=== PATIENT | female | born 1955 | race Caucasian/White ===

== ENCOUNTER 2017-12-10 20:46 | Emergency (ER) | payer BC ==
[2017-12-10 21:14] LABS: BASO % 0.5 % (0-6); EOS % 1.7 % (0-6); GRAN % 52.4 % (47-80); HEMATOCRIT 43.2 % (35.0-47.0); HEMOGLOBIN 14.6 gm/dl (11.6-16.0); LYMPH % 37.4 % (16-45); MEAN CELL VOLUME 88.3 fl (81-97); MEAN CORPUSCULAR HEMOGLOBIN 29.9 pg (27-33); MEAN CORPUSCULAR HGB CONC 33.8 g/dl (32-36); MEAN PLATELET VOLUME 9.4 fl (7.4-10.4); PLATELET COUNT 334 K/uL (130-400); RED BLOOD COUNT 4.89 M/uL (3.80-5.40); RED CELL DISTRIBUTION WIDTH 12.5 % (11.5-14.5); WHITE BLOOD COUNT W/O DIFF 6.7 K/uL (4.2-12.2)
[2017-12-10] MEDS ORDERED: DILTIAZEM HCL 125 MG in 0.9 % SODIUM CHLORIDE 100ML 100 ML IV SCH (21:15)
[2017-12-10] MEDS ORDERED: 0.9 % SODIUM CHLORIDE 1000ML 1,000 ML IV SCH (21:15)
--- NOTE | 2017-12-10 21:19 | Emergency Department Record ---
History of Present Illness - General Chief Complaint: Dizziness Stated Complaint: ELEVATED HEART RATE,DIZZINESS Time Seen by Provider: 12/10/17 20:54 Source: Patient Mode of Arrival: Ambulatory Limitations: No limitations - History of Present Illness Initial Comments: 62 yo female presents to ED for evaluation of palpations and dizziness that began a few hours ago while at rest at home. Patient denies a previous history of irregular heart beat, and denies recent fevers, chills, chest discomfort, or history of thyroid problems. Patient reports a history of MS and fibromyalgia, also takes Eliquis for DVT previously. MD Complaint: Dizziness Onset/Timin -: Hour(s) Timing: Unsure Description: Lightheadedness History of Same: No History of Trauma: No Improves With: Other Worsens With: Movement Associated Symptoms: Weakness - Adrianne Coma Scale Eye Response: (4) Open spontaneously Motor Response: (6) Obeys commands Verbal Response: (5) Oriented Adrianne Total: 15 - Related Data Home Medications Medication Instructions Recorded Confirmed Last Taken Apixaban [Eliquis] 5 mg PO DAILY 12/10/17 12/10/17 Unknown Budesonide/Formoterol Fumarate 1 puff INH BID 12/10/17 12/10/17 Unknown [Symbicort 160-4.5 Mcg Inhaler] Duloxetine HCl [Cymbalta] 30 mg PO DAILY 12/10/17 12/10/17 Unknown L. Rhamnosus/C/Zinc Cit/Yeast 1 tab PO DAILY 12/10/17 12/10/17 Unknown [Culturelle Immune Defense Cap] Trazodone HCl [Desyrel] 50 mg PO QHS 12/10/17 12/10/17 Unknown Allergies Allergy/AdvReac Type Severity Reaction Status Date / Time Penicillins Allergy Severe HIVES Unverified 06/08/16 18:54 Sulfa (Sulfonamide Allergy Severe HIVES Unverified 06/08/16 18:54 Antibiotics) [SULFA (SULFONAMIDE ANTIBIOTICS)] Travel Screening - Travel/Exposure Within Last 30 Days Have you traveled within the last 30 days?: No - Travel Symptoms Symptom Screening: None Review of Systems Constitutional: Denies: Chills, Fever, Malaise, Night sweats Eyes: Denies: Eye discharge, Eye pain ENT: Denies: Congestion, Ear pain, Epistaxis Cardiovascular: Reports: Palpitations. Denies: Chest pain, Dyspnea on exertion Endocrine: Denies: Fatigue, Heat or cold intolerance Gastrointestinal: Denies: Abdominal pain, Nausea, Vomiting Genitourinary: Denies: Incontinence, Retention Musculoskeletal: Denies: Arthralgia, Back pain, Gout, Joint swelling Skin: Denies: Bruising, Change in color Neurological: Denies: Abnormal gait, Confusion, Headache, Seizure Psychiatric: Denies: Anxiety Hematological/Lymphatic: Denies: Anemia, Blood Clots Past Medical History - SOCIAL HISTORY Smoking Status: Never smoker Alcohol Use: Rare Drug Use: None - RESPIRATORY Hx Respiratory Disorders: Yes Hx Asthma: Yes - CARDIOVASCULAR Hx Cardio Disorders: Yes Comment:: hyperlipedemia - NEURO Hx Neuro Disorders: Yes Comment:: MS - GI Hx GI Disorders: No - Hx Genitourinary Disorders: No - ENDOCRINE Hx Endocrine Disorders: No - MUSCULOSKELETAL Hx Musculoskeletal Disorders: Yes Hx Fibromyalgia: Yes - PSYCH Hx Psych Problems: No - HEMATOLOGY/ONCOLOGY Hx Hematology/Oncology Disorders: No Family Medical History Any Significant Family History?: No Physical Exam - General General Appearance: Alert, Oriented x3, Cooperative, Moderate distress Limitations: No limitations - Head Head exam: Atraumatic, Normocephalic, Normal inspection Head exam detail: negative: Abrasion, Contusion, Downing's sign, General tenderness, Hematoma, Laceration - Eye Eye exam: Normal appearance. negative: Conjunctival injection, Periorbital swelling, Periorbital tenderness, Scleral icterus - ENT Ear exam: negative: Auricular hematoma, Auricular trauma Nasal Exam: negative: Active bleeding, Discharge, Dried blood, Foreign body Mouth exam: negative: Drooling, Laceration, Tongue elevation - Neck Neck exam: Normal inspection. negative: Meningismus, Tenderness - Respiratory Respiratory exam: Normal lung sounds bilaterally. negative: Rales, Respiratory distress, Rhonchi, Stridor - Cardiovascular Cardiovascular Exam: Irregular rhythm, Tachycardia - GI/Abdominal GI/Abdominal exam: Soft. negative: Rebound, Rigid, Tenderness - Rectal Rectal exam: Deferred - exam: Deferred - Extremities Extremities exam: Normal inspection. negative: Calf tenderness, Pedal edema, Tenderness - Back Back exam: Denies: CVA tenderness (R), CVA tenderness (L) - Neurological Neurological exam: Alert, Normal gait, Oriented X3 - Psychiatric Psychiatric exam: Normal affect, Normal mood - Skin Skin exam: Normal color. negative: Abrasion Type of lesion: negative: abrasion Course Vital Signs 12/10/17 20:50 Pulse Rate [ 131 H [employer] ] Respiratory 18 Rate Blood Pressure 139/95 [Left Arm] Pulse Ox 98 - Reevaluation(s) Reevaluation #1: 12/10/17 21:15 EKG: Atrial Fibrillation 147 Normal axis, irregular R-R intervals T wave inversions I, AVL, mild ST depression V5-V6 Reevaluation #2: 12/10/17 21:32 BP 123/85, will increase Cardizem qttp to 7.5 mg/hr. Reevaluation #3: 12/10/17 21:45 Labs reviewed and are grossly unremarkable for an acute process. Pulse 110's at this time, and the patient is resting comfortably. Will initiate transfer for new-onset cardiology. Reevaluation #4: 12/10/17 21:51 Case was discussed with Dr. Asher, will accept admission at time. Medical Decision Making - Lab Data Result diagrams: 12/10/17 21:00 12/10/17 21:00 Critical Care Time Critical Care Time: Yes Total Critical Care Time: 35 Critical Care Time: Diagnosis and treatment of atrial fibrillation, titration of cardizem drip, initiation of transfer for A. Fib with RVR. Disposition Disposition: Transfer Clinical Impression: Atrial fibrillation with rapid ventricular response Disposition: Acute Care Hospital Transfer Transfer To: [facility] Reason For Transfer: Cardiology consultation Accepting Physician: Lakeshia Time Discussed w/Accepting Physician: 21:52 Condition: (2) Stable Forms: Patient Portal Access Time of Disposition: 21:52 Quality - Quality Measures Quality Measures: N/A - Blood Pressure Screening Does Patient Have Any of the Following: No Blood Pressure Classification: Pre-Hypertensive BP Reading Systolic Measurement: 123 Diastolic Measurement: 85 Screening for High Blood Pressure: < Pre-Hypertensive BP, F/U Documented > [ G8950] Pre-Hypertensive Follow-up Interventions: Referral to alternative/primary care provider.
[2017-12-10 21:33] LABS: ALB/GLOB RATIO 1.5 (1.1-1.8); ALBUMIN 4.6 g/dL (4.0-5.0); ALKALINE PHOSPHATASE 88 U/L (35-104); ALT/SGPT 23 U/L (<33); AST/SGOT 18 U/L (10.0-35.0); BLOOD UREA NITROGEN 15 mg/dL (8-23); CREATININE 0.5 mg/dL (0.5-0.9); EST GLOMERULAR FILTRATION RATE > 60 mL/min; GLUCOSE,RANDOM 105 mg/dL (74-109); TOTAL PROTEIN 7.6 g/dL (6.6-8.7)
[2017-12-10 21:43] LABS: THYROID STIMULATING HORMONE 3.12 uIU/mL (0.270-4.20)
== END 2017-12-10 22:53 | disposition short-term general hospital (02) ==
LOC: ER 20:46
DX: I48.0 Paroxysmal atrial fibrillation (principal); R42 Dizziness and giddiness; Z86.718 Personal history of other venous thrombosis and embolism; Z79.01 Long term (current) use of anticoagulants; G35 Multiple sclerosis
CPT/HCPCS: 80053; 84443; 84484; 85025; 93005; 93010; 96365; 96366; 99285; J7030

== ENCOUNTER 2018-08-31 14:05 | Emergency (ER) | payer BC ==
--- NOTE | 2018-08-31 14:32 | Emergency Department Record ---
History of Present Illness - General Chief Complaint: Arrythmia/Palpitations Stated Complaint: IRREGULAR HEART RATE Time Seen by Provider: 08/31/18 14:10 Source: Patient Mode of Arrival: Wheelchair - History of Present Illness Initial Comments: patient had vomiting and diarrhea yesterday and had two vomiting episodes yesterday and 6 bouts of diarrhea and the diarrhea is still going on today and she ate eggs and orange juice and toast and kept i down. She didn't take any of her meds yesterday or today and her felt her heart rate was to0 fast and they came in to be checked for atrial fib. Patient states PMH of atrial fib in november 2017 and hisory of DVT times two and is on eliquis for life and she also takes multaq,. Upon arrival to ED she was n NSR and heart rate was 95. Patient denies chest pain, dyspnea but does have tendeness in all four abdominal quadrants. Onset/Timin -: Days(s) Arrythmia History: Atrial fibrillation - Related Data Home Medications Medication Instructions Recorded Confirmed Last Taken Atorvastatin Calcium 20 mg PO DAILY 08/31/18 08/31/18 1 Day Ago ~08/30/18 Dronedarone HCl [Multaq] 400 mg PO BID 08/31/18 08/31/18 1 Day Ago ~08/30/18 Interferon Beta-1A/Albumin [Avonex 30 mcg IM WEEKLY 08/31/18 08/31/18 1 Day Ago 30 Mcg Vial Kit] ~08/30/18 Omeprazole 20 mg PO DAILY 08/31/18 08/31/18 1 Day Ago ~08/30/18 Previous Rx's Medication Instructions Recorded Dicyclomine HCl [Bentyl] 10 mg PO Q8H #20 cap 08/31/18 Allergies Allergy/AdvReac Type Severity Reaction Status Date / Time Penicillins Allergy Severe HIVES Verified 08/31/18 14:45 Sulfa (Sulfonamide Allergy Severe HIVES Verified 08/31/18 14:45 Antibiotics) [SULFA (SULFONAMIDE ANTIBIOTICS)] Travel Screening - Travel/Exposure Within Last 30 Days Have you traveled within the last 30 days?: No - Travel/Exposure Within Last Year Have you traveled outside the [place] in the last year?: No - Additonal Travel Details Have you been exposed to anyone with a communicable illness?: No - Travel Symptoms Symptom Screening: None Review of Systems Reviewed: No additional complaints except as noted below Constitutional: Reports: As per HPI. Denies: Chills, Fever, Malaise, Night sweats, Weakness, Weight change Eyes: Reports: As per HPI. Denies: Eye discharge, Eye pain, Photophobia, Vision change ENT: Reports: As per HPI. Denies: Congestion, Dental pain, Ear pain, Epistaxis , Hearing loss, Throat pain Respiratory: Reports: As per HPI. Denies: Cough, Dyspnea, Hemoptysis, Stridor, Wheezes Cardiovascular: Reports: As per HPI, Arrhythmia. Denies: Chest pain, Dyspnea on exertion, Edema, Murmurs, Orthopnea, Palpitations, Paroxysmal nocturnal dyspnea, Rheumatic Fever, Syncope Endocrine: Reports: As per HPI. Denies: Fatigue, Heat or cold intolerance, Polydipsia, Polyuria Gastrointestinal: Reports: As per HPI, Abdominal pain, Diarrhea, Nausea, Vomiting. Denies: Constipation, Hematemesis, Hematochezia, Melena Genitourinary: Reports: As per HPI. Denies: Abnormal menses, Discharge, Dyspareunia, Dysuria, Frequency, Hematuria, Incontinence, Retention, Urgency Musculoskeletal: Reports: As per HPI. Denies: Arthralgia, Back pain, Gout, Joint swelling, Myalgia, Neck pain Skin: Reports: As per HPI. Denies: Bruising, Change in color, Change in hair/ nails, Lesions, Pruritus, Rash Neurological: Reports: As per HPI. Denies: Abnormal gait, Confusion, Headache, Numbness, Paresthesias, Seizure, Tingling, Tremors, Vertigo, Weakness Psychiatric: Reports: As per HPI. Denies: Anxiety, Auditory hallucinations, Depression, Homicidal thoughts, Suicidal thoughts, Visual hallucinations Hematological/Lymphatic: Reports: As per HPI. Denies: Anemia, Blood Clots, Easy bleeding, Easy bruising, Swollen glands Past Medical History - SOCIAL HISTORY Smoking Status: Never smoker Alcohol Use: Rare, Occasional Drug Use: None - RESPIRATORY Hx Respiratory Disorders: Yes Hx Asthma: Yes Hx Sleep Apnea: Yes Hx of CPAP: Yes - CARDIOVASCULAR Hx Cardio Disorders: Yes Hx Irregular Heartbeat: Yes (A-fib) Comment:: hyperlipedemia - NEURO Hx Neuro Disorders: Yes Comment:: MS - GI Hx GI Disorders: No - Hx Genitourinary Disorders: No - ENDOCRINE Hx Endocrine Disorders: No - MUSCULOSKELETAL Hx Musculoskeletal Disorders: Yes Hx Fibromyalgia: Yes - PSYCH Hx Psych Problems: No - HEMATOLOGY/ONCOLOGY Hx Hematology/Oncology Disorders: No Family Medical History Any Significant Family History?: Yes Family Hx Comment (NOT TO BE USED IN PLACE OF ITEMS BELOW): MD with brothers Hx Cancer: Father Hx Heart Disease: Grandparents Physical Exam - General General Appearance: Alert, Oriented x3, Cooperative, No acute distress - Head Head exam: Normal inspection - Eye Eye exam: Normal appearance, PERRL Pupils: Normal accommodation - ENT ENT exam: Normal exam, Mucous membranes moist, Normal external ear exam, Normal orophraynx, TM's normal bilaterally Ear exam: Normal external inspection. negative: External canal tenderness Nasal Exam: Normal inspection. negative: Discharge, Sinus tenderness Mouth exam: Normal external inspection, Tongue normal Teeth exam: Normal inspection. negative: Dental caries Throat exam: Normal inspection. negative: Tonsillar erythema, Tonsillar exudate - Neck Neck exam: Normal inspection, Full ROM. negative: Tenderness - Respiratory Respiratory exam: Normal lung sounds bilaterally. negative: Respiratory distress - Cardiovascular Cardiovascular Exam: Regular rate, Normal rhythm, Normal heart sounds - GI/Abdominal GI/Abdominal exam: Soft, Normal bowel sounds, Tenderness (tenderness in all four quads). negative: Distended, Guarding, Rebound, Rigid - Rectal Rectal exam: Deferred - exam: Deferred - Extremities Extremities exam: Normal inspection, Full ROM, Normal capillary refill. negative: Tenderness - Back Back exam: Reports: Normal inspection, Full ROM. Denies: Muscle spasm, Rash noted, Tenderness - Neurological Neurological exam: Alert, Normal gait, Oriented X3, Reflexes normal - Psychiatric Psychiatric exam: Normal affect, Normal mood - Skin Skin exam: Dry, Intact, Normal color, Warm Course Vital Signs 08/31/18 14:09 Temperature 99.0 F Pulse Rate 96 H Respiratory 20 Rate Blood Pressure 134/79 Pulse Ox 96 - Reevaluation(s) Reevaluation #1: feeling better ,last diarrhea stool this am 08/31/18 15:18 Medical Decision Making - Lab Data Result diagrams: 08/31/18 14:35 08/31/18 14:35 Disposition Clinical Impression: Vomiting and diarrhea, Gastroenteritis Disposition: Home, Self-Care Condition: (1) Good Instructions: Gastroenteritis (ED) Additional Instructions: fluids and bland food like applesauce, bananas ,rive toast and yogurt follow up with family Dr in 2 days if not better or return to ED Prescriptions: Dicyclomine HCl [Bentyl] 10 mg PO Q8H #20 cap Forms: Patient Portal Access Time of Disposition: 15:20 Quality - Quality Measures Quality Measures: N/A - Blood Pressure Screening Does Patient Have Any of the Following: No Blood Pressure Classification: Pre-Hypertensive BP Reading Systolic Measurement: 134 Diastolic Measurement: 79 Screening for High Blood Pressure: < Pre-Hypertensive BP, F/U Documented > [ G8950] Pre-Hypertensive Follow-up Interventions: Referral to alternative/primary care provider.
[2018-08-31] MEDS ORDERED: 0.9 % SODIUM CHLORIDE 1000ML 1,000 ML IV PRN (14:34)
[2018-08-31 14:45] LABS: BASO % 0.2 % (0-6); EOS % 1.8 % (0-6); GRAN % 61.4 % (47-80); HEMATOCRIT 46.1 % (35.0-47.0); LYMPH % 25.5 % (16-45); MEAN CELL VOLUME 90.6 fl (81-97); MEAN CORPUSCULAR HEMOGLOBIN 29.5 pg (27-33); MEAN CORPUSCULAR HGB CONC 32.5 g/dl (32-36); MEAN PLATELET VOLUME 9.1 fl (7.4-10.4); MONO % 11.1 % (0-9); PLATELET COUNT 301 K/uL (130-400); RED BLOOD COUNT 5.09 M/uL (3.80-5.40)
[2018-08-31 15:01] LABS: BLOOD UREA NITROGEN 14 mg/dL (8-23); CREATININE 0.6 mg/dL (0.5-0.9); EST GLOMERULAR FILTRATION RATE > 60 mL/min
[2018-08-31 15:04] LABS: GLUCOSE,RANDOM 99 mg/dL (74-109)
[2018-08-31 15:06] LABS: TOTAL PROTEIN 7.7 g/dL (6.6-8.7)
[2018-08-31 15:07] LABS: LIPASE 25 U/L (13-60)
[2018-08-31 15:10] LABS: ALT/SGPT 31 U/L (<33)
[2018-08-31 15:11] LABS: ALBUMIN 4.7 g/dL (4.0-5.0); ALKALINE PHOSPHATASE 72 U/L (35-104); AST/SGOT 32 U/L (10.0-35.0); BILIRUBIN,DIRECT < 0.2 mg/dL (0-0.3)
== END 2018-08-31 15:35 | disposition home or self-care (01) ==
LOC: ER 14:05
DX: K52.9 Noninfective gastroenteritis and colitis, unspecified (principal); R11.11 Vomiting without nausea; R10.84 Generalized abdominal pain; I48.91 Unspecified atrial fibrillation; Z86.718 Personal history of other venous thrombosis and embolism
CPT/HCPCS: 80048; 80076; 83690; 84484; 85025; 85730; 93005; 93010; 96360; 99284

== ENCOUNTER 2019-08-05 16:40 | Emergency (ER) | payer BC ==
--- NOTE | 2019-08-05 16:58 | Emergency Department Record ---
History of Present Illness - General Chief Complaint: Arrythmia/Palpitations Stated Complaint: HEART RATE FLUCTUATING Time Seen by Provider: 08/05/19 16:47 Source: Patient Mode of Arrival: Ambulatory Limitations: No limitations - History of Present Illness Initial Comments: 64 yo female presents with a feeling of irregular heart rate. She reports she h as a history of atrial fibrillation in the past. She reports about 4pm she noted an irregular feeling with her heart rate. No chest pain, no shortness of breath, no cough, no sweating. She was not lightheaded or dizzy. She states she had atrial fibrillation about 2 years ago. She was treated by Dr Holbrook of [facility] Cardiology. She is on Eliquis and Multaq. She states she is on usp anticoagulation due to 2 DVT's in the past. No leg pain or swelling. She states she otherwise feels like she is in her normal state health. MD Complaint: Irregular heart beat, Palpitations Onset/Timin -: Hour(s) Context: Occurred during rest Arrythmia History: Atrial fibrillation Associated Symptoms: Denies other symptoms - Related Data Home Medications Medication Instructions Recorded Confirmed Last Taken Albuterol Sulfate 0.083% [Neb] 3 ml NEB .EVERY 4-6 HOURS PRN 08/05/19 08/05/19 1 Day Ago [Albuterol Sulfate] ~08/04/19 Albuterol Sulfate [Proair Hfa] 1 - 2 puff IH .EVERY 4-6 HOURS PRN 08/05/19 08/05/19 1 Day Ago ~08/04/19 Allergies Allergy/AdvReac Type Severity Reaction Status Date / Time Penicillins Allergy Severe HIVES Verified 08/05/19 16:54 Sulfa (Sulfonamide Allergy Severe HIVES Verified 08/05/19 16:54 Antibiotics) [SULFA (SULFONAMIDE ANTIBIOTICS)] Travel Screening - Travel/Exposure Within Last 30 Days Have you traveled within the last 30 days?: No - Travel/Exposure Within Last Year Have you traveled outside the [place] in the last year?: No - Additonal Travel Details Have you been exposed to anyone with a communicable illness?: No - Travel Symptoms Symptom Screening: None Review of Systems Constitutional: Denies: Chills, Fever, Malaise, Weakness Eyes: Denies: Eye discharge, Eye pain, Photophobia, Vision change ENT: Denies: Congestion, Throat pain Respiratory: Denies: Cough, Dyspnea Cardiovascular: Reports: As per HPI, Arrhythmia, Palpitations. Denies: Chest pain, Dyspnea on exertion, Edema, Syncope Endocrine: Denies: Fatigue Gastrointestinal: Denies: Abdominal pain, Diarrhea, Nausea, Vomiting Genitourinary: Denies: Dysuria, Urgency Musculoskeletal: Denies: Arthralgia, Back pain, Joint swelling, Myalgia Skin: Denies: Bruising, Change in color, Rash Neurological: Denies: Headache, Numbness, Weakness Psychiatric: Denies: Anxiety Hematological/Lymphatic: Denies: Easy bleeding, Easy bruising Past Medical History - SOCIAL HISTORY Smoking Status: Never smoker Alcohol Use: Occasional Drug Use: None - RESPIRATORY Hx Respiratory Disorders: Yes Hx Asthma: Yes Hx Sleep Apnea: Yes Hx of CPAP: Yes - CARDIOVASCULAR Hx Cardio Disorders: Yes Hx Irregular Heartbeat: Yes (A-fib) Comment:: hyperlipedemia - NEURO Hx Neuro Disorders: Yes Comment:: MS - GI Hx GI Disorders: Yes Hx Reflux: Yes - Hx Genitourinary Disorders: No - ENDOCRINE Hx Endocrine Disorders: No - MUSCULOSKELETAL Hx Musculoskeletal Disorders: Yes Hx Fibromyalgia: Yes - PSYCH Hx Psych Problems: Yes Hx Anxiety: Yes Hx Depression: Yes - HEMATOLOGY/ONCOLOGY Hx Hematology/Oncology Disorders: No Family Medical History Any Significant Family History?: Yes Family Hx Comment (NOT TO BE USED IN PLACE OF ITEMS BELOW): MD with brothers Hx Cancer: Father Hx Heart Disease: Grandparents Physical Exam - General General Appearance: Alert, Oriented x3, Cooperative, No acute distress Limitations: No limitations - Head Head exam: Atraumatic, Normal inspection - Eye Eye exam: Normal appearance, PERRL. negative: Conjunctival injection, Scleral icterus - ENT ENT exam: Normal exam, Mucous membranes moist Ear exam: Normal external inspection Nasal Exam: Normal inspection Mouth exam: Normal external inspection - Neck Neck exam: Normal inspection - Respiratory Respiratory exam: Normal lung sounds bilaterally. negative: Respiratory distress, Rhonchi, Stridor, Wheezes - Cardiovascular Cardiovascular Exam: Regular rate, Normal rhythm, Normal heart sounds Peripheral Pulses: 2+: Radial (R), Radial (L) - GI/Abdominal GI/Abdominal exam: Soft. negative: Tenderness - Rectal Rectal exam: Deferred - exam: Deferred - Extremities Extremities exam: negative: Calf tenderness, Pedal edema, Tenderness - Back Back exam: Denies: CVA tenderness (R), CVA tenderness (L) - Neurological Neurological exam: Alert, Oriented X3 - Psychiatric Psychiatric exam: Normal affect, Normal mood. negative: Agitated, Anxious - Skin Skin exam: Dry, Intact, Normal color, Warm Course Vital Signs 08/05/19 16:48 Pulse Rate 82 Respiratory 18 Rate Blood Pressure 125/86 Pulse Ox 98 - Reevaluation(s) Reevaluation #1: EKG #1: 16:47 Rate: 80 Rhythm: sinus [place]: L Intervals: QTc 466, ST segments: normal No acute abnormality 08/05/19 16:55 Monitor with NSR rate 78 08/05/19 18:17 The labs were reviewed No acute abnormalities Normal Troponin She remains in NSR. No arrhythmia 08/05/19 19:06 The patient has remained in NSR without atrial fibrillation or other arrhythmia The plan is DC home if the 2nd troponin is normal She will call her PCP and real estate assistant for follow up Medical Decision Making - Lab Data Result diagrams: 08/05/19 16:55 08/05/19 16:55 Disposition Disposition: Discharge Clinical Impression: Palpitations Disposition: Home, Self-Care Condition: (1) Good Instructions: Heart Palpitations (ED) Additional Instructions: Review this ER visit and the tests performed with your family doctor and your real estate assistant Call your doctor for the next available follow up appointment Return or be seen if you have an rapid or irregular heart rate Return to the ER for a recheck if worse, any new concerns or questions Referrals: BROOKE HOLBROOK D.O. [DOCTOR OF OSTEOPATH] - Forms: Patient Portal Access Time of Disposition: 19:06 Quality - Quality Measures Quality Measures: N/A - Blood Pressure Screening Does Patient Have Any of the Following: Active Dx of HTN Blood Pressure Classification: Pre-Hypertensive BP Reading Systolic Measurement: 125 Diastolic Measurement: 86 Screening for High Blood Pressure: Patient Exclusion, Hx of HTN [G9744] Pre-Hypertensive Follow-up Interventions: Referral to alternative/primary care provider.
[2019-08-05 17:13] LABS: BASO % 0.3 % (0-6); EOS % 1.3 % (0-6); GRAN % 66.4 % (47-80); HEMATOCRIT 39.3 % (35.0-47.0); HEMOGLOBIN 12.5 gm/dl (11.6-16.0); LYMPH % 24.9 % (16-45); MEAN CELL VOLUME 91.2 fl (81-97); MEAN CORPUSCULAR HGB CONC 31.8 g/dl (32-36); MEAN PLATELET VOLUME 8.7 fl (7.4-10.4); MONO % 7.1 % (0-9); PLATELET COUNT 332 K/uL (130-400); RED BLOOD COUNT 4.31 M/uL (3.80-5.40); RED CELL DISTRIBUTION WIDTH 13.2 % (11.5-14.5)
[2019-08-05 17:22] LABS: BLOOD UREA NITROGEN 11 mg/dL (8-23); CREATININE 0.7 mg/dL (0.5-0.9); EST GLOMERULAR FILTRATION RATE > 60 mL/min
[2019-08-05 17:25] LABS: GLUCOSE,RANDOM 97 mg/dL (74-109)
[2019-08-05 17:27] LABS: ALT/SGPT 22 U/L (<33); AST/SGOT 21 U/L (10.0-35.0)
[2019-08-05 17:28] LABS: ALB/GLOB RATIO 1.9 (1.1-1.8); ALBUMIN 4.6 g/dL (4.0-5.0); ALKALINE PHOSPHATASE 76 U/L (35-104)
[2019-08-05 17:39] LABS: THYROID STIMULATING HORMONE 4.17 uIU/mL (0.270-4.20)
== END 2019-08-05 19:28 | disposition home or self-care (01) ==
LOC: ER 16:40
DX: R00.2 Palpitations (principal); I10 Essential (primary) hypertension; Z79.01 Long term (current) use of anticoagulants
CPT/HCPCS: 80053; 84443; 84484; 85025; 93005; 93010; 99284